=== PATIENT | male | born 1980 ===

== ENCOUNTER 2017-03-19 14:29 | Emergency (ER) | payer MEDICAID ==
[2017-03-19 14:46] VITALS: BP 155/88
--- NOTE | 2017-03-19 15:11 | EDM.PDOC ---
ED HPI GENERAL MEDICAL PROBLEM - General Chief Complaint: Upper Extremity Injury/Pain Stated Complaint: LT ARM PAIN Time Seen by Provider: 03/19/17 14:50 Source of Information: Reports: Patient - History of Present Illness INITIAL COMMENTS - FREE TEXT/NARRATIVE: Patient is here for evaluation of left shoulder and arm pain. He states that approximately 6 weeks ago he did injure this when he was holding onto a rope and the horse he was leaving strongly pulled away from him. He had persistent pain and then was 2 weeks later was trying to free a fence post and it slipped and he heard a pop. Patient feels that his pain has worsened progressively since that time. He also states that he feels weak on the left upper extremity. He also feels that his muscle is not symmetric with the right side. Patient has been evaluated by his PCP for this, he does have an appointment scheduled with orthopedics on March 30. He is here today as he would like to get this taken care of sooner. He was placed on an oral steroid by his PCP to help reduce the inflammation for this, he states that he is reading for the side effects of this and has noted occasional cough and a sore to his left drake that's been slow to heal and these are listed the side effects that he would like them checked out. Left Upper Arm Pain Score (Numeric/FACES): 8 - Related Data Allergies Allergy/AdvReac Type Severity Reaction Status Date / Time Penicillins Allergy Severe Nausea and Verified 03/29/16 19:06 Vomiting Home Meds: Home Meds ALPRAZolam [Alprazolam] 1 mg PO TID PRN 03/29/16 [History] Hydrocodone/Acetaminophen [Hydrocodon-Acetaminophen 5-325] 1 each PO BEDTIME PRN #10 tablet 03/19/17 [Rx] methylPREDNISolone [Medrol] 4 mg PO DAILY 03/19/17 [History] Past Medical History Musculoskeletal History: Reports: Other (See Below) Other Musculoskeletal History: rt ankle surgery Psychiatric History: Reports: Anxiety - Past Surgical History HEENT Surgical History: Reports: Oral Surgery Social & Family History - Family History Family Medical History: Noncontributory - Tobacco Use Smoking Status *Q: Current Every Day Smoker Years of Tobacco use: 15 Packs/Tins Daily: 0.5 Used Tobacco, but Quit: No Second Hand Smoke Exposure: No - Caffeine Use Caffeine Use: Reports: Coffee - Alcohol Use Days Per Week of Alcohol Use: 2 Number of Drinks Per Day: 7 Total Drinks Per Week: 14 - Recreational Drug Use Recreational Drug Use: No Review of Systems - Review of Systems Review Of Systems: See Below Constitutional: Reports: No Symptoms Ears: Reports: No Symptoms Nose: Reports: Clear Discharge Mouth/Throat: Reports: No Symptoms Respiratory: Reports: Cough, Sputum (Clear sputum in the mornings.). Denies: Shortness of Breath, Wheezing Cardiovascular: Reports: No Symptoms GI/Abdominal: Reports: No Symptoms Musculoskeletal: Reports: Shoulder Pain (Left), Other (Left upper arm pain) Skin: Reports: Wound (Left drake) Neurological: Reports: No Symptoms ED EXAM, GENERAL - Physical Exam Exam: See Below Exam Limited By: No Limitations General Appearance: Alert, WD/WN, No Apparent Distress Ears: Normal External Exam, Normal Canal, Normal TMs Nose: Normal Inspection, Clear Rhinorrhea Throat/Mouth: Normal Inspection, Normal Lips, Normal Oropharynx Head: Atraumatic, Normocephalic Neck: Normal Inspection Respiratory/Chest: No Respiratory Distress, Lungs Clear, Normal Breath Sounds, No Accessory Muscle Use Cardiovascular: Normal Peripheral Pulses, Regular Rate, Rhythm, No Murmur (Left shoulder without ecchymosis or deformity. He does have full range of motion with the shoulder, does have pain with abduction. He does have deformity to left triceps muscle and significant weakness of his triceps muscle. No obvious bulge.) Neurological: Alert, Oriented, No Motor/Sensory Deficits Psychiatric: Normal Affect, Normal Mood Skin Exam: Warm, Dry, Other (Abrasion to left drake approximately 0.5 cm eschar with 2 cm surrounding erythema. There is no purulent drainage from this. Mildly warm to the touch.) Lymphatic: No Adenopathy Course - Vital Signs Last Recorded V/S: Last Vital Signs Temp 97.8 F 03/19/17 14:45 Pulse 84 03/19/17 14:45 Resp 20 03/19/17 14:45 BP 155/88 H 03/19/17 14:45 Pulse Ox 100 03/19/17 14:45 - Re-Assessments/Exams Free Text/Narrative Re-Assessment/Exam: Patient has appointment scheduled with his orthopedics for evaluation for shoulder and upper arm pain. Patient requesting to get MRI prior to this appointment, I advised patient that he can call me in the clinic and I will help him to set this up but I would like to discuss with his orthopedic provider prior to ordering. Likely both MRI of the shoulder and upper arm/ triceps would be indicated. Recommend patient continue with his anti-inflammatory. Hydrocodone given for pain relief at that time. I advised rest, no lifting with his left upper extremity and ice as needed for the pain. Patient's lungs are CTA bilaterally. His cough is likely due to allergic rhinitis/drainage. I recommend that he try daily Zyrtec for this. Localized erythema to wound on his left drake, I do not feel that systemic antibiotics are indicated for this. I recommend that he apply topical antibiotic twice daily and monitor this, wound should be decreasing in size and improving. If wound should increase in size, have purulent drainage or he should have a fever over 101 that he will need to return to the ER. Patient should follow-up with his PCP as scheduled and keep his appointment with orthopedics. 03/19/17 17:20 Departure - Departure Time of Disposition: 15:16 Disposition: Home, Self-Care 01 Condition: Good Clinical Impression: Upper extremity pain Qualifiers: Laterality: left Qualified Code(s): M79.602 - Pain in left arm - Discharge Information Prescriptions: Hydrocodone/Acetaminophen [Hydrocodon-Acetaminophen 5-325] 1 each PO BEDTIME PRN #10 tablet PRN Reason: Pain Instructions: Shoulder Pain, [id number], Tendinitis, [id number] Referrals: Jose R Mary Jr, MD [Primary Care Provider] - Forms: ED Department Discharge Additional Instructions: Rest to her left upper extremity. Activity as tolerated. Do not lift more than about 10 pounds with this side. Ice as needed for pain. You may take Tylenol or ibuprofen as needed during the day, hydrocodone as needed at nighttime for pain. You may call Aleena Yeh in clinic on Tuesday ([phone])and will arrange MRI prior to orthopedic appointment on March [address] Saba.
== END 2017-03-19 15:39 | disposition home or self-care (01) ==
LOC: JD.ED 14:29
DX: M79.602 Pain in left arm (principal); F17.210 Nicotine dependence, cigarettes, uncomplicated; Z88.0 Allergy status to penicillin; Z79.899 Other long term (current) drug therapy
CPT/HCPCS: 99283

== ENCOUNTER 2017-03-21 16:38 | Emergency (ER) | payer MEDICAID ==
[2017-03-21 17:33] VITALS: BP 156/96
[2017-03-21] MEDS ORDERED: Doxycycline 100 MG Cap PO ONE (18:37)
--- NOTE | 2017-03-21 18:40 | EDM.PDOC ---
ED HPI GENERAL MEDICAL PROBLEM - General Chief Complaint: Lower Extremity Injury/Pain Stated Complaint: L LEG SKIN COMPLAINT Time Seen by Provider: 03/21/17 18:05 Source of Information: Reports: Patient History Limitations: Reports: No Limitations - History of Present Illness INITIAL COMMENTS - FREE TEXT/NARRATIVE: Patient is a 36-year-old male who was seen yesterday in the clinic for small bump to the left anterior distal drake after hitting on a table. There was some mild redness present. Was not started on any antibiotics. Per patient over the last 24 hours the redness has drastically worsened with increasing pain noted. No drainage present. Has no history of MRSA but notes that he was on antibiotics for extended period of time due to infection to his right ankle. Of note patient has been on methylprednisone as well for torn tricep muscle left arm. He just completed the course of methylprednisone yesterday. He has appointment to see an orthopedic surgeon on Tuesday with MRI to be obtained tomorrow. He has a history of anxiety and currently on a benzodiazepine. Denies any fever/chills, numbness or tingling, or any additional complaints. Patient does wear slip on work boots that compress that area causing increased irritation. Left Lower Leg Pain Score (Numeric/FACES): 9 - Related Data Allergies Allergy/AdvReac Type Severity Reaction Status Date / Time Penicillins Allergy Severe Nausea and Verified 03/21/17 17:26 Vomiting Home Meds: Home Meds ALPRAZolam [Alprazolam] 1 mg PO TID PRN 03/29/16 [History] Doxycycline [Vibramycin] 100 mg PO Q12HR #20 cap 03/21/17 [Rx] Past Medical History Musculoskeletal History: Reports: Other (See Below) Other Musculoskeletal History: rt ankle surgery Psychiatric History: Reports: Anxiety - Past Surgical History HEENT Surgical History: Reports: Oral Surgery Social & Family History - Family History Family Medical History: Noncontributory - Tobacco Use Smoking Status *Q: Current Every Day Smoker Years of Tobacco use: 15 Packs/Tins Daily: 0.5 Used Tobacco, but Quit: No Second Hand Smoke Exposure: No - Caffeine Use Caffeine Use: Reports: Coffee - Alcohol Use Days Per Week of Alcohol Use: 2 Number of Drinks Per Day: 7 Total Drinks Per Week: 14 - Recreational Drug Use Recreational Drug Use: No Review of Systems - Review of Systems Review Of Systems: ROS reveals no pertinent complaints other than HPI. ED EXAM, GENERAL - Physical Exam Exam: See Below Exam Limited By: No Limitations General Appearance: Alert, WD/WN, No Apparent Distress Ears: Hearing Grossly Normal Nose: Normal Inspection Throat/Mouth: Normal Voice, No Airway Compromise Neck: Normal Inspection, Supple Respiratory/Chest: No Respiratory Distress, No Accessory Muscle Use Cardiovascular: Normal Peripheral Pulses, Regular Rate, Rhythm Extremities: Other (Approximately 3 cm x 2 cm area with deep sharply demarcated redness with a small open area to the anterior drake. Faint redness extending out in all directions. No drainage present. Pain with palpation with increased warmth noted.) Neurological: Alert, Oriented, CN II-XII Intact, Normal Cognition, No Motor/ Sensory Deficits Psychiatric: Normal Affect, Normal Mood Skin Exam: Warm Course - Vital Signs Last Recorded V/S: Last Vital Signs Temp 98.6 F 03/21/17 17:27 Pulse 92 03/21/17 17:27 Resp 15 03/21/17 17:27 BP 156/96 H 03/21/17 17:27 Pulse Ox 99 03/21/17 17:27 - Orders/Labs/Meds Labs: Laboratory Tests 03/21/17 Range/Units 19:05 MRSA (PCR) Negative Meds: Medications Discontinued Medications Generic Name Dose Route Start Last Admin Trade Name Phu PRN Reason Stop Dose Admin Doxycycline Hyclate 200 mg 03/21/17 18:37 03/21/17 19:03 Vibramycin PO 03/21/17 18:38 200 mg ONETIME ONE Administration - Re-Assessments/Exams Free Text/Narrative Re-Assessment/Exam: Ordered doxycycline 200 mg by mouth. In addition ordered MRSA nasal culture. We' ll discharge patient home with instructions as documented. MRSA culture was negative. Departure - Departure Time of Disposition: 18:43 Disposition: Home, Self-Care 01 Condition: Good Clinical Impression: Abrasion, leg w/ infection Qualifiers: Encounter type: initial encounter Laterality: left Qualified Code(s): S80.812A - Abrasion, left lower leg, initial encounter - Discharge Information Prescriptions: Doxycycline [Vibramycin] 100 mg PO Q12HR #20 cap Instructions: Abrasion, [id number] Referrals: Jose R Mary Jr, MD [Primary Care Provider] - Forms: ED Department Discharge Additional Instructions: Take the full course of doxycycline as prescribed. Elevate the affected leg throughout the course of the day to reduce any swelling and pain. Apply warm compresses to the affected area 4-6 times daily, 30 minutes in duration, and if draining keep covered. Take ibuprofen and/or Tylenol for pain. Do this in alternating fashion. Follow-up with orthopedic surgeon as scheduled for this coming Tuesday. Return to the ED for any new or worsening symptoms.
== END 2017-03-21 19:17 | disposition home or self-care (01) ==
LOC: JD.ED 16:38
DX: S80.812A Abrasion, left lower leg, initial encounter (principal); L08.9 Local infection of the skin and subcutaneous tissue, unspecified; W22.03XA Walked into furniture, initial encounter; Z88.0 Allergy status to penicillin; F17.210 Nicotine dependence, cigarettes, uncomplicated
CPT/HCPCS: 87641; 99283; A9270